=== PATIENT | female | born 1985 | race Caucasian/White ===

== ENCOUNTER 2018-09-12 16:18 | Emergency (ER) | payer OTHER ==
[2018-09-12] MEDS ORDERED: methylPREDNISolone SOD SUCC 125 MG/2 ML VIAL IM ONE (16:43)
[2018-09-12] MEDS ORDERED: LIDOCAINE HCL 1% PF 50MG/5ML AMP (IM/SUTURE/PAIN CLINIC) IJ ONE (16:44)
[2018-09-12 16:52] VITALS: BP 130/76
--- NOTE | 2018-09-12 16:54 | ED Physician Documentation ---
Upper Respiratory Symptoms - HPI Stated Complaint: Cough, swollen lymph nodes, neck pain Chief Complaint: Cough/ Upper Respiratory Onset: days ago (10) Duration: intermittent episodes Context: denies: recent foreign travel Associated Symptoms: fever, runny nose, sinus pain, chest pain, productive cough - ROS CONST/EYES: weakness CVS/RESP: chest pain LYMPH: swollen glands GI/: denies: vomiting, nausea NEURO/PSYCH: dizziness - PAST HX Lung Disease: none PE Risk Factors: none Surgeries/Procedures: none Allergies/Adverse Reactions: Allergies Allergy/AdvReac Type Severity Reaction Status Date / Time No Known Drug Allergies Allergy Unverified 10/28/13 14:59 Home Medications: Ambulatory Orders Medication Instructions Recorded Levofloxacin [Levaquin] 750 mg PO DAILY #7 tablet 09/12/18 - SOCIAL HX Smoking History: non-smoker Alcohol Use: none Drug Use: none - FAMILY HX Family History: none - VITAL SIGNS Vital Signs: Vital Signs Temp Pulse Resp BP Pulse Ox 97.8 F 98 H 20 130/76 95 09/12/18 16:30 09/12/18 16:30 09/12/18 16:30 09/12/18 16:30 09/12/18 16:30 - REVIEWED ASSESSMENTS Nursing Assessment Reviewed: Yes Vitals Reviewed: Yes ED Results Lab/Radiology - Orders Orders: ED Orders Category Date Time Status Lidocaine 1% 5ml(IM or SUTURE) [Xylocaine] Med 09/12/18 16:44 Discontinued 5 mg IJ NOW ONE cefTRIAXone SODIUM [Rocephin] Med 09/12/18 16:43 Discontinued 1,000 mg IM NOW ONE methylPREDNISolone SOD SUCC [Solu-MEDROL] Med 09/12/18 16:43 Discontinued 125 mg IM NOW ONE Upper Respiratory Symptoms - EXAM General Appearance: no acute distress, alert EENT: pain over sinuses, maxillary (left), rhinorrhea Neck: lymphadenopathy (left submandibular) Respiratory: no resp. distress, breath sounds nml, speaks full sentences Abdomen: non-tender, no distention. No: tenderness CVS: reg rate & rhythm, heart sounds normal Skin: color nml, no rash Extremities: non-tender, no edema Neuro/Psych: oriented x3, mood/affect nml Discharge Clincal Impression: Left maxillary sinusitis Prescriptions: Levofloxacin [Levaquin] 750 mg PO DAILY #7 tablet Referrals: Beatriz Figueroa MD [Primary Care Provider] - 2 Days Additional Instructions: 1. Start Levaquin on 09/13/2018 2. Use nasal saline irrigation daily 3. Cool mist humidifier with sleep 4. Ibuprofen and/or tylenol as needed for pain/fever 5. Follow up with PCP within 1 week 6. Return to ER with new or worsening symptoms. Condition: Stable Decision to Admit: NO Date of Decison to Admit: 09/12/18 Decision Time: 16:58
[2018-09-12] MEDS ORDERED: cefTRIAXone SODIUM 1 GM INJ ONE (17:01)
== END 2018-09-12 17:48 | disposition home or self-care (01) ==
LOC: ED 16:18
DX: J32.0 Chronic maxillary sinusitis (principal)
CPT/HCPCS: 96372; 99282; 99284; J0696; J2930